=== PATIENT | female | born 1975 ===

== ENCOUNTER 2017-11-28 15:05 | Observation (INO) | payer MEDICAID ==
[~2017-11-28] VITALS: Ht 152.4 cm; Wt 59.0 kg
[2017-11-28] MEDS ORDERED: LACTATED RINGER'S 1,000 ML IV ONE (15:29)
[2017-11-28] MEDS ORDERED: MAGNESIUM SULFATE 40MG/ML 1,000 ML IV SCH (15:29)
[2017-11-28] MEDS ORDERED: MAGNESIUM SULFATE 100 ML IV ONE (15:30)
[2017-11-28] MEDS ORDERED: PREN-96 PO (15:47)
[2017-11-28] MEDS ORDERED: MAGNESIUM SULFATE 40MG/ML 1,000 ML IV ONE (15:49)
[2017-11-28 16:06] LABS: Basophils # (auto) 0 uL; Basophils % (auto) 0.4 % (0.0-2.0); Eosinophils # (auto) 0.2 uL; Hemoglobin 9.9 g/dL (12.2-16.2); Lymphocytes # (auto) 1.3 uL; Lymphocytes % (auto) 17.1 % (10.0-50.0); Mean Corpuscular Hemoglobin 31.8 pg (28.0-32.0); Mean Corpuscular Volume 93.6 fL (80.0-100.0); Monocytes # (auto) 0.5 uL; Monocytes % (auto) 6.7 % (0.0-12.0); Neutrophils # (auto) 5.5 uL; Neutrophils % (auto) 72.8 % (37.0-80.0); Nucleated Red Blood Cells % 0.1 %; Platelet Count (auto) 196 10^3/uL (140-450); Red Cell Distribution Width 14.2 % (11.8-14.3); White Blood Cell 7.6 10^3/uL (4.4-10.8)
[2017-11-28 16:18] LABS: INR 0.85 (0.9-1.15); Prothrombin Time 9.2 sec (9.37-12.3)
[2017-11-28 16:25] LABS: Albumin 2.6 g/dL (3.4-5.0); BUN/Creatinine Ratio 8.6; Bilirubin, Total 0.2 mg/dL (0.2-1.0); Calcium 8.6 mg/dL (8.5-10.1); Total Protein 6.4 g/dL (6.4-8.2); Uric Acid 3.8 mg/dL (2.6-6.0)
[2017-11-28 17:36] LABS: Alcohol, Urine < 3.0 mg/dL (0-5); Amphetamine Screen, Urine NEGATIVE (NEGATIVE); Barbiturate Scree,Urine NEGATIVE (NEGATIVE); Benzodiazephine Screen, Urine NEGATIVE (NEGATIVE); Cannabinoid Screen, Urine NEGATIVE (NEGATIVE); Cocaine Screen, Urine NEGATIVE (NEGATIVE); Opiate Scree,Urine NEGATIVE (NEGATIVE); Phencyclidine Screen, Urine NEGATIVE (NEGATIVE)
[2017-11-28 17:38] LABS: Urine Bacteria NONE SEEN /hpf (None Seen); Urine Blood Negative /uL (Negative); Urine Mucus FEW (None Seen); Urine Specific Gravity 1.009 (1.001-1.035); Urine WBC <1 /hpf (0 - 5)
[2017-11-28] MEDS ORDERED: BETAMETHASONE ACET (6MG/ML) 5ML VIAL IM SCH (22:00)
== END 2017-11-28 20:14 | DRG 566 ==
LOC: LDRP 15:05
PROVIDERS: ADMIT Specialist; ATTEND Specialist
DX: O46.92 Antepartum hemorrhage, unspecified, second trimester (principal); O09.512 Supervision of elderly primigravida, second trimester; Z3A.25 25 weeks gestation of pregnancy
CPT/HCPCS: 36415; 59025; 76805; 80053; 80307; 81001; 81002; 83735; 84550; 85025; 85384; 85610; 85730; 86850; 86900; 86901; 94760; 96365; 96366; 96372; G0378; J3475; 51702; 96361